=== PATIENT | female | born 1960 | race Caucasian/White ===

== ENCOUNTER 2025-02-24 07:47 | Outpatient (CLI) | payer BC, SELFPAY ==
--- OUTSIDE RECORDS SUMMARY | 2016-03-15 08:30 | XMS_ITS | Continuity of Care Document ---
Author Organization [facility] Address [address] [place] [address] [place] [address] Phone Care Team Providers Care Spool Cleaner Name Role Phone Alcon Powers MD Unavailable Unavailable Medications Medication Instructions Dosage Effective Dates (start - stop) Status Comments omeprazole 40 mg capsule,delayed release take 1 capsule by oral route every day before a meal 40 MG - Active Procedures Procedure Date No Charge Refraction Office/outpatient Visit, [facility] Advance Directives Directive Yes / No Effective Date File Name No Information Encounters Encounter Description Practice Location Reason(s) For Visit Diagnoses Date Provider Providers Copied on Encounter Office/outpat ient Visit, [facility], [address] [place] [address] [address], [place], [place], [id number], [place] tel:[phone] [facility] Professional Cataract evaluation (chief complaint) Nuclear sclerosis of left eyeNuclear sclerosis of right eye [address] [facility] [address], [place], [place], [id number], [place]. tel:[phone] Referring Provider: Josi Gutiérrez OD, [address] [place], [address]. tel:[phone] Family History Family Member Type Diagnosis Age At Onset No Information Payers Payer name Insurance type Covered constitution party ID Authoriza tion(s) BCBS ID Out Of State [id number] Social History Type Description Quantity Date Captured Comments Alcohol Use Details Caffeine Use Details No Tobacco Use Status No Information Smoking Status Never smoker Non-Smoking Tobacco Use Details : No Details Available : No Details Available Sex Female Chief Complaint And Reason For Visit From encounter dated '03/15/2016 14:30'. Cataract evaluation (chief complaint). Description: The 55 year old female presents for Cataract evaluation ou per Dr. Gutiérrez. Patient c/o bluury vision ou and hard to see road signs. Patient c/o hard to read small ou. Patient is a contact lens wearer and wears monovision contacts. Patient states has not worn contacts x 1 month. Reason For Referral Reason For Referral No Information History Of Present Illness Encounter Date Complaint History Of Prese nt Illness Cataract evaluation The 55 year old female presents for Cataract evaluation ou per Dr. Gutiérrez. Patient c/o bluury vision ou and hard to see road signs. Patient c/o hard to read small ou. Patient is a contact lens wearer and wears monovision contacts. Patient states has not worn contacts x 1 month. Functional Status Date Functional Assessmen t No Information Instructions Date Instruction Additional Infor mation Impression/Plan - Ea rly Cataracts discussed in detail with patient. Patient has 20/20 vision with current glasses and minimal glare on BAT testing. No treatment is recommended at this time. The glare that the patient has been experiencing may be exacerbated by her MF CTLs. Patient to return to Dr. Gutiérrez for refraction and new glasses. Patient will monitor vision and return to clinic in 1 year for Complete Cataract check or sooner PRN. Follow up - 1 year for Complete Cataract Check Assessments Type Assessment Date assessment Nuclear sclerosis of left eye No v assessment Nuclear sclerosis of right eye N Patient Care Teams Name Effective Dates (start - stop) Status Members No Information
--- OUTSIDE RECORDS SUMMARY | 2025-02-24 07:56 | XMS_ITS | Encounter Summary ---
Author Organization [facility] Address [address] [place] [address] Phone Care Team Providers Care Pattern Mechanic Name Role Phone Alonso Randhawa MD Primary Care Provider + [phone] Adrienne Atkinson MD Unavailable [phone] Encounter Details Date Type Department Care Team (Late st Contact Info) Description 03/22/2017 Orders Only [facility] [address] [place] [address] China Burns MA Social History Tobacco Use Types Packs/Day Years Used Date Smoking Tobacco: Former Comments:Smoking History Pac ks/day: 1 Packs Alcohol Use Standard Drinks/Week Comments Yes 0 (1 standard drink = 0.6 oz pur e alcohol) Comments No Sex and Gender Information Value Date Recorded Sex Assigned at Not on file 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 Gender Identity Not on file Sexual Orientation Not on file documented as of this encounter Plan of Treatment Upcoming Encounters Date Type Department Care Team (Late st Contact Info) Description 08/03/2025 11:30 AM CDT Hospital Encounter [facility] [address] [place] [address] Dio Dalton MD [address] [place] [address] [place] [address] 08/03/2025 11:30 AM CDT - 08/03/2025 12:00 PM CDT Surgery [facility] [address] [place] [address] Dio Dalton MD [address] [place] [address] COLONOSCOPY Scheduled Procedures Name Priority Associated Diagnoses Date/Ti me COLONOSCOPY History of colonic polyps Family history of colon cancer Encounter for screening colonoscopy 08/03/2025 11:30 AM CDT documented as of this encounter Visit Diagnoses Not on filedocumented in this encounter Additional Health Concerns Infection Onset Date Last Indicated Resolved Time COVID: Suspected 01/01/2020 01/01/2020 01/02/2020 11:45 AM CDT Respiratory Infection (FAINA), contact + droplet Comment:Automatically added due to negative COVID-19 result. 01/02/2020 01/02/2020 01/16/2020 3:0 6 AM CDT COVID: Suspected 05/18/2022 05/18/2022 05/18/2022 11:50 AM ASSISTANT SUPERINTENDENT COVID: Suspected 07/05/2022 07/05/2022 07/05/2022 12:23 PM CDT COVID: Suspected 07/05/2022 07/05/2022 07/05/2022 1:13 PM CDT COVID: Suspected 07/25/2022 07/25/2022 07/25/2022 1:21 PM CDT COVID: Suspected 03/30/2023 03/30/2023 03/30/2023 8:45 AM ASSISTANT SUPERINTENDENT COVID: Suspected 05/28/2024 05/28/2024 05/28/2024 3:43 PM ASSISTANT SUPERINTENDENT COVID19 05/28/2024 05/28/2024 06/07/2024 3:07 AM ASSISTANT SUPERINTENDENT COVID: Recovered Comment:Added based on recent COVID infection. 06/07/2024 06/27/2024 09/05/2024 3:05 AM C DT documented as of this encounter Care Teams Pattern Mechanic Relationship Specialty Start Date End Date Alonso Randhawa MD PCP - General 07/21/16 Adrienne Atkinson MD [address] [place] [address] Obstetrics and Gynecology 11/29/16 documented as of this encounter
--- OUTSIDE RECORDS SUMMARY | 2025-02-24 07:56 | XMS_ITS | Clinical Summary ---
Author Organization [facility] Address [address], [address] [place] [address] Phone Care Team Providers Care Court Specialist Name Role Phone Alonso Randhawa MD Primary Care Provider Allergies No known active allergies Medications acetaminophen-c odeine (TYLENOL #3) 300-30 MG Tablet 0 10/10/2017 Active Dexlansoprazole (DEXILANT) 60 MG CAPSULE DELAYED RELEASE TAKE 1 CAPSULE DAILY (REPLACES OMEPRAZOLE) 02/06/2017 Active DULoxetine (CYMBALTA) [address] Particles Take 60 mg by mouth 2 times daily. 07/18/2017 Active MULTIPLE VITAMIN PO Take 1 Tab by mouth daily. Active pregabalin (LYRICA) 100 MG Capsule Take 100 mg by mouth 3 times daily. Active pantoprazole (PROTONIX) 40 MG Tablet Delayed Response Take 40 mg by mouth daily. Active rosuvastatin (CRESTOR) 20 MG Tablet Take 20 mg by mouth daily. Active Immunizations Immunization Administration Dates Next Due Covid-19, Mrna, Lnp-s, Pf, 1 00 Mcg Or 50 Mcg Dose (MODERNA) 08/11/2020,07/05/2020 Family History Medical History Relation Name Comments Cancer Maternal Grandmother colon Cancer Mother lung Relation Name Status Comments Father Maternal Grandmother Mother Social History Tobacco Use Types Packs/Day Years Used Date Smoking Tobacco: Former Cigarettes 1 20 0 10/17/1977 - 10/17/1997 Smokeless Tobacco: Never Alcohol Use Standard Drinks/Week Comments No 0 (1 standard drink = 0.6 oz pur e alcohol) socially Comments Unknown Sex and Gender Information Value Date Recorded Sex Assigned at Not on file Legal Sex Female 11:37 PM CDT Gender Identity Not on file Sexual Orientation Not on file Last Filed Vital Signs Vital Sign Reading Time Taken Comments Blood Pressure 132/73 10/08/2024 12:10 PM CDT Pulse 66 10/08/2024 12:10 PM CDT Temperature 36.2 C (97.1 F) 10/08/2024 12:10 PM CDT Respiratory Rate 16 10/08/2024 12:10 PM CDT Oxygen Saturation 97% 10/08/2024 12:10 PM CDT Inhaled Oxygen Concentration - - Weight 78.9 kg (174 lb) 10/08/2024 7:00 AM CDT Height 157.5 cm (5' 2) 10/08/2024 7:00 AM CDT Body Mass Index 31.83 10/08/2024 7:00 AM CDT Plan of Treatment Health Maintenance Due Date Last Done Comments DEXA Bone Density 1960 Hepatitis C Virus (HCV) Screening 1960 Pap Smear 07/31/1980 Cervical Cancer Screening (CCS) 07/31/1989 HPV/Cotest 07/31/1989 Cologuard 07/31/2004 Immunochemical Fecal Occult Blood 07/31/2004 Pneumococcal Immunization (50+ years) (1 of 1 - PCV) 07/31/2009 Colonoscopy 11/26/2022 11/26/2017 Colorectal Cancer Screening 11/26/2022 Hepatitis B Immunization (2 of 2 - CpG 2-dose series) 03/27/2023 02/27/2023 Influenza Immunization (#1) 12/22/202401/21, 02/27/2023, 01/02/2022, Additional history exists SARS-COV-2 Immunization ( season) 2024 02/05/2024, 01/30/2023, 03/19/2022, Additional history exists Mammogram 05/20/2025 05/20/2024, 12/23, 05/18/2021, Additional history exists DTaP/Tdap/Td Immunization Discontinued 10/29/2017 TdaP Immunization Completed 10/29/2017 Zoster Immunization Completed 05/08/2019, 9 Respiratory Syncytial Virus (RSV) Immunization (Adult) Completed 01/30/2023 Human Papillomavirus (HPV) Immunization Aged Out No longer eligible based on patient's age to complete this topic Meningococcal Immunization (ACWY) Aged Out No longer eligible based on patient's age to complete this topic Rotavirus Immunization Aged Out No lo nger eligible based on patient's age to complete this topic Insurance [place] [id number] [facility] MEDICARE Care Teams Court Specialist Relationship Specialty Start Date End Date Alonso Randhawa MD [address] [place] [id number] PCP - General Internal Medicine 09/25/17
--- OUTSIDE RECORDS SUMMARY | 2025-02-24 07:56 | XMS_ITS | Encounter Summary ---
Author Organization [facility] Address [address] [place] [address] Care Team Providers Care Student Recruiter Name Role Phone Alonso Randhawa MD Primary Care Provider + [phone] Adrienne Atkinson MD Unavailable [phone] Encounter Details Date Type Department Care Team (Late st Contact Info) Description 02/09/2025 Results Follow-Up [facility] [address] [place] [address] Adrienne Atkinson MD [address] [place] [address] Pap and High Risk HPV and Genotyping (Cytology Component) Social History Tobacco Use Types Packs/Day Years Used Date Smoking Tobacco: Former Smokeless Tobacco: Never Comments:Smoking History Pac ks/day: 1 Packs Alcohol Use Standard Drinks/Week Comments Yes 0 (1 standard drink = 0.6 oz pur e alcohol) PHQ-2 Answer Date Recorded PHQ-2 Total Score (If total score is 3 or more points, staff should administer the PHQ-9) 0 01/29/2025 Personal Safety Answer Date Recorded Getting School Help Needed Denies 04/24 Comments No Sex and Gender Information Value Date Recorded Sex Assigned at Not on file 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 Gender Identity Not on file Sexual Orientation Not on file Occupation Industry Job Start Date Job End Date disabled Not on file Not on file Not on file documented as of this encounter Plan of Treatment Upcoming Encounters Date Type Department Care Team (Late st Contact Info) Description 08/03/2025 11:30 AM CDT Hospital Encounter [address] [address] Dio Dalton MD [address] [facility] [place] [address] 08/03/2025 11:30 AM CDT - 08/03/2025 12:00 PM CDT Surgery [address] [address] Dio Dalton MD [address] [facility] [place] [address] COLONOSCOPY Scheduled Procedures Name Priority Associated Diagnoses Date/Ti me COLONOSCOPY History of colonic polyps Family history of colon cancer Encounter for screening colonoscopy 08/03/2025 11:30 AM CDT documented as of this encounter Visit Diagnoses Not on filedocumented in this encounter Care Teams Student Recruiter Relationship Specialty Start Date End Date Alonso Randhawa MD PCP - General 07/21/16 Adrienne Atkinson MD [address] [place] [address] Obstetrics and Gynecology 11/29/16 documented as of this encounter
--- OUTSIDE RECORDS SUMMARY | 2025-02-24 07:56 | XMS_ITS | Clinical Summary ---
Author Organization [facility] [address] Address [address] [place] [address] Phone Care Team Providers Care Risk Management Internship Name Role Phone Chuy Randhawa MD Primary Care Provider +- [phone] Alejandra Phelps MD Unavailable [phone] Allergies Active Allergy Reactions Criticality Noted Date Comments Atorvastatin Unknown Low Medications pregabalin (LYRICA) 100 mg capsule Take 1 capsule (100 mg total) by mouth 3 (three) times a day Active mv,with [id number] 9herb 13.5-200-250 mg-mcg-mcg tablet Take 1 tablet by mouth daily Active promethazine-DM (PROMETHAZINE-DM) 1.25-3 mg/mL syrupIndications: Upper respiratory tract infection, unspecified type Take 5 mL by mouth every 4 (four) hours as needed for cough 120 mL 025 Active Additional Information Patient not taking.Reported on 02/19/2025 albuterol HFA (PROVENTIL HFA,VENTOLIN HFA,PROAIR HFA) 90 mcg/actuation inhalerIndication s:Wheezing Inhale 2 puffs every 6 (six) hours as needed for wheezing 1 each 4 025 2025 Active rosuvastatin (CRESTOR) 20 mg tabletIndications :Mixed hyperlipidemia TAKE 1 TABLET DAILY 90 tablet [address] (CYMBALTA) 60 mg capsuleIndication s:Current mild episode of major depressive disorder, unspecified whether recurrent TAKE 1 CAPSULE TWICE A DAY [address] (PROTONIX) 40 mg EC tabletIndications :Gastroesophageal reflux disease without esophagitis Take 1 tablet (40 mg total) by mouth daily 90 tablet 025 Active meloxicam (MOBIC) 15 mg tablet Take 1 tablet (15 mg total) by mouth daily 025 Active oxyBUTYnin XL (DITROPAN-XL) 5 mg 24 hr tabletIndications :Urge incontinence Take 1 tablet (5 mg total) by mouth daily 30 tablet 1 [address] (CYMBALTA) 60 mg capsuleIndication s:Current mild episode of major depressive disorder, unspecified whether recurrent TAKE 1 CAPSULE TWICE A DAY 180 capsule 1 [address] (PROTONIX) 40 mg EC tabletIndications :Gastroesophageal reflux disease without esophagitis TAKE 1 TABLET DAILY 90 tablet 025 2024 Discontinued(R eorder) Active Problems Problem Noted Date Diagnosed Date Left lower quadrant abdominal pain 02/19/2025 Assessment & Plan (02/19/2025 7:18 PM CDT): Patient's abdominal pain lower abdomen left side was constantly been there for several days. No urinary symptoms. Exam patient abdomen appears slightly bloated KUB shows evidence of moderate amount of fecal material consistent with constipation. Patient will be advised to utilize MiraLax. Be indicated at this time History of colonic polyps 02/13/2025 Family history of colon cancer 02/13/2025 Encounter for screening colonoscopy 02/13/2025 Wheezing 07/06/2024 Spinal stenosis of lumbar re gion without neurogenic claudication 05/19/2024 Assessment & Plan (05/19/2024 5:37 PM YEAST DISTILLER): Notes reviewed interventional pain clinic. MRI results reviewed from past week showing lumbar spinal stenosis. She has been advised by pain clinic to contact neurosurgery [place]. Patient has had spinal stenosis and cervical disc surgery in the past 5 years. Patient is reminded no having lifting where she recently did. Changes in medications she has been on multiple medications through pain clinic with partial relief. Ulnar neuropathy of right upper extremity 2023 Assessment & Plan (11/15/2023 3:01 PM CDT): Patient has had some neuropathy symptoms right upper arm this started since her last visit to a pain clinic.. The patient discuss this with the pain Clinic on the upcoming visit Balance problem 11/15/2023 Assessment & Plan (11/15/2023 3:41 PM CDT): Patient states she feels off balance sometimes she when she walks a few falls never had any syncopal episodes are diaphoresis a palpitations. Patient is of the opinion that it may be a medication she is on pre gabapentin/Lyrica and duloxetine. Advised patient to discuss with pain clinic potential side effects her exam here in office perfectly normal she did a heel-to-toe walk without difficulty neurological exam in terms of balance was excellent Preventative health care 10/18/2022 Assessment & Plan (01/29/2025 3:51 PM CDT): 64-year-old lady here for annual exam. She advised me she is getting lumbar surgery on 03/17/2025. She has had 2 previous back surgeries both no cervix disc in the past 2 years. She presently has a pain pump in place. For lumbar back pain. She history of arthritis degenerative disc disease and spinal stenosis. Assessment & Plan (11/15/2023 3:38 PM CDT): History and physical completed patient's health risk assessment health maintenance reviewed and addressed. Overall patient is doing well. She does have some ongoing pain related to her cervical neuropathy. Having some neuropathy in the right upper extremity at this time. She does have a pain pump in place. Other health problems include hyperlipidemia. She also had some anxiety she is taking care of grandchildren 1 years of age and 4 years of age secondary to her daughter's health issues. Anticipated that her daughter will take over managing the children next 6 months. Restless leg 10/17/2022 Assessment & Plan (11/15/2023 2:59 PM CDT): Patient is presently not taking Requip/ropinirole. Patient did help her she is having some cramps in her hands and feet it may be unrelated.. Advised discussed this with the pain clinic next week on her visit because she is having some other concerns at this time Assessment & Plan (01/19/2023 6:06 PM CDT): Restless leg has improved with the Requip 5 mg in the evening. Assessment & Plan (10/18/2022 10:26 AM CDT): Patient is having restless leg type symptoms however the cramping is predominantly in her feet. Plans start this patient on Requip 0.5 mg at HS she is advised she may need to titrate to twice a day because of problems do occur day and night. Progress report in the next 30 days. Osteoarthritis, hand, primary localized, right 0 10/17/2022 Assessment & Plan (01/19/2023 6:05 PM CDT): Patient having lot of right hip pain physical therapy has helped her in the past coming refer her back to physical therapy she remains on non steroidal anti-inflammatory turns 75 mg daily Cough 05/18/2022 Assessment & Plan (05/21/2023 10:16 AM YEAST DISTILLER): URI symptoms for approx 4-5 weeks. Tested negative for COVID and FLU at beginning of symptoms. Tight cough, significant PND on exam. Finish Doxycycline as rxd. Rxd Prednisone burst for wheezing. Encouraged plain cough suppressant (Delsym). Tylenol/Ibuprofen as needed for pain. Increase fluids (water) Cool mist humidifier at night Use sinus rinses to help flush bacteria and help with congestion. Encouraged honey, marshmallows, gelatin, or chloraseptic to help coat throat. Call with any worsening or persistent symptoms. Assessment & Plan (04/25/2023 3:44 PM YEAST DISTILLER): URI symptoms for approx 10 days. Tested negative for COVID at home. Tight cough, significant PND, maxillary tenderness on exam. Likely viral, Rxd Promethazine Dm as instructed. Discussed antihistamine use (zyrtec/pat) to help dry up mucous. Tylenol/Ibuprofen as needed for pain. Increase fluids (water) Cool mist humidifier at night Use sinus rinses to help flush bacteria and help with congestion. Encouraged honey, marshmallows, gelatin, or chloraseptic to help coat throat. Call with any worsening or persistent symptoms. Assessment & Plan (03/30/2023 9:15 AM YEAST DISTILLER): Persistent cough x 1 month. Sometimes coughs so hard she gags. Cough likely related to viral illness, as entire family has been sick. However, given duration of illness, may have bacterial component as well. Some rhonchi heard in lungs on exam today. Covid/Flu/RSV negative in-office today Plan: RX for doxycycline x 7 days RX for albuterol inhaler RX for promethazine-DM (patient does not have cough relief with tessalon perles Other symptom relief as discussed in AVS Patient to follow-up if no improvement at end of antibiotic course Assessment & Plan (07/25/2022 1:27 PM CDT): Reportedly persistent, intermittent problem since upper respiratory infection around 07/05/2022, reportedly worse over the last 3-4 days Patient denies currently smoking - reports that she smoked a long time ago No documented lung history Physical examination as documented - no signs/symptoms of serious illness noted COVID 19 and influenza A/B in office - ALL negative Suspect likely viral etiology (bronchitis) vs allergic etiology vs combination thereof Recommended continued supportive measures at this time and symptom monitoring - patient agreeable to plan Discussed patient calling back in 2 weeks if no improvement with supportive measures as documented below to get CXR to assess structural abnormality contributing to cough - patient verbalized understanding and agreement Orders for AMS STAFF to arrange None at this time Orders for Cesar Gilliland to arrange Start benzonatate as needed for cough Continue albuterol inhaler as needed for cough/wheezing/shortness of breath Consider restarting Flonase - can use twice daily during acute symptoms Consider adding Mucinex DM to regimen to thin respiratory secretions and suppress cough in addition to Tessalon Pearles Consider adding allergy medication to regimen - cetirizine, loratadine, fexofenadine - can take twice daily during acute symptoms Continue monitoring symptoms - report persistent or worsening symptoms to the office or go to ER Call office in a couple weeks if no improvement in symptoms with above conservative measures - will consider getting CXR to rule out structural abnormality contributing to cough Follow up as scheduled with Dr. Randhawa or sooner if necessary Assessment & Plan (07/05/2022 1:24 PM CDT): Acute problem, present times about 1.5 weeks Physical examination as documented - no signs/symptoms of serious illness noted COVID 19 and influenza A/B in office - ALL negative Suspect likely viral vs bacterial infectious etiology Recommended antibiotics and continued symptom management/monitoring - patient requested something other than azithromycin, stating that she normally has to take 2 courses of this antibiotic when prescribed this - patient agreeable to doxycycline and supportive measures (see below) Orders for AMS STAFF to arrange None at this time Orders for Cesar Gilliland to arrange Start doxycycline as ordered - complete course, take on an empty stomach preferably - if cannot tolerate on empty stomach, take with food (AVOID calcium containing foods) Continue Mucinex to keep respiratory secretions thin Consider adding allergy medication to regimen - cetirizine, fexofenadine, loratadine - can take twice daily for up to 2 weeks during acute symptoms Consider adding intranasal steroid - Flonase or Nasacort - can use twice daily for up to 2 weeks during acute symptoms Consider using warm compresses over the sinuses multiple times daily as able to help with sinus pressure and headache Consider OTC acetaminophen for discomfort Stay hydrated, rest as needed, eat well Continue monitoring symptoms - report persistent or worsening symptoms to the office or go to ER Follow up as scheduled with Dr. Randhawa or sooner if necessary Assessment & Plan (05/18/2022 12:58 PM YEAST DISTILLER): Acute problem, present times about 1.5 weeks Physical examination as documented - no signs/symptoms of serious illness noted COVID 19 and influenza A/B in office - ALL negative Suspect likely viral vs atypical bacterial etiology Recommended azithromycin to cover atypical bacteria and continue symptom management/monitoring - patient agreeable to plan Orders for AMS STAFF to arrange None at this time Orders for Cesar Gilliland to arrange Start azithromycin as ordered - complete course, take with food and probiotic to prevent stomach upset and diarrhea Start benzonatate as needed for cough Continue OTC medications for symptom relief Stay hydrated, eat well, rest as needed Continue monitoring symptoms - report persistent or worsening symptoms the office or go to ER Follow up as scheduled with Dr. Randhawa or sooner if necessary Mixed hyperlipidemia 03/20/2022 Assessment & Plan (05/21/2024 6:59 PM YEAST DISTILLER): Lipid profile continues to be in therapeutic range on rosuvastatin 20 mg daily will continue present therapy Component Latest Ref Rng 11/15/2023 Cholesterol 30 - 199 mg/dL 134 Triglycerides <=149 mg/dL 74 HDL Cholesterol >=40 mg/dL 49 LDL Cholesterol Calc <=129 mg/dL 70 Non-HDL Cholesterol mg/dL 85 Chol/HDL ratio 3 Assessment & Plan (11/15/2023 3:10 PM CDT): Patient remain on Crestor we will get an update on fasting lipid profile. She is tolerating medications and she is overdue for lab Assessment & Plan (03/20/2022 5:20 PM YEAST DISTILLER): Update lipid profile today patient is on Zetia 10 mg daily Acute bilateral low back pain without sciatica 0 11/24/2021 Assessment & Plan (12/14/2023 3:14 PM CDT): This patient at age 63 on wisely decided to move some logs in her yd and developed acute low back pain. This was 3 weeks ago she anticipated she would have improved by now which she has not. Patient is uncomfortable going from sitting to standing sitting on exam table. She has good flexion of her hips pain is from L1-L4 pain is worse with palpating. Patient has no neurological deficits. She has some stiffness in her back. And she is on Lyrica therefore no muscle relaxant given. Patient is going to try prednisone 20 mg twice a day. Assessment & Plan (01/19/2023 6:05 PM CDT): Pain is improved however she does have some right hip pain physical therapy will be involved referral made Assessment & Plan (10/18/2022 10:30 AM CDT): Patient is having a flare-up of low back pain she previously went to [facility] which helped her. Has no sciatica at this time I recommended she resume physical therapy. Assessment & Plan (11/24/2021 5:07 PM CDT): Patient's has known osteoarthritis she is complaining a lot of hip pain and low back pain. Is no significant sciatic at this time he is on non steroidal anti-inflammatorys. Recommend she get a physical therapy mild osteoarthritis for left hip Sleep disturbance 07/09/2018 Assessment & Plan (07/09/2018 5:48 PM CDT): Patient is here to discuss sleep disturbance she has impression for from her she has sleep apnea.. Patient does not have sleep apnea her [place] Sleepiness Scale is 7 abnormal greater than 10. Patient does have disturbing dreams 80% of the time she does not wake up fighting asleep for crying hauling and sleep. Just horrible drains this is been going on for years. Patient describes it may be getting 5 hours of sleep difficulty of falling sleep very active mine is running in racing all the time she does not take naps during the day and she wakes up rested.. 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 Patient needs an update on BMP and fasting lipid profile. Immunizations current. Patient has chronic pain she has had several neck surgeries giving her neuropathy symptoms she has a pain pump in place and she is under care of the pain Clinic. Assessment & Plan (03/20/2022 5:23 PM YEAST DISTILLER): Forms filled out from [facility] for foster grandparent care. Presently has a 5-year-old living with her.. No restrictions on this patient serving as a foster grandparent appropriate forms were filled out given to the patient sent into the [facility].. Assessment & Plan (05/16/2021 12:02 PM YEAST DISTILLER): History and physical completed patient's health risk assessment health maintenance reviewed in addressed.. Mammogram is ordered. Patient has not had a lipid profile for several years will check this at this time patient's body mass index is 30.95 Assessment & Plan (02/23/2021 10:36 AM CDT): Patient is here for surgical clearance she is getting a stimulator placement for cervical neck pain. This will be done at [facility] Dr. Tristen Reid.. Patient is low risk surgical complications she is clear for surgery. Preoperative EKG and lab will be done at the facility of surgery. Assessment & Plan (10/29/2017 5:18 PM CDT): Patient's annual exam is unremarkable, patient has a colonoscopy coming up in a few weeks she received letter from her gastroenterology advised her she needs to repeat colonoscopy based on previous colonoscopy report some biopsies. This is scheduled for November 26, 2017 patient's laboratory studies updated and immunization a tetanus is given. Hepatitis C laboratory screenin. and mammograms ordered. Chronic neck pain 10/29/2017 Assessment & Plan (11/15/2023 3:12 PM CDT): Patient continues under the pain Clinic /interventional pain audit consultant clinic. Assessment & Plan (05/17/2021 10:53 AM YEAST DISTILLER): Patient has had a stimulator placed in a pain clinic.. Adjustments still being pain on the stimulate for optimal pain relief. Assessment & Plan (03/15/2020 6:05 PM YEAST DISTILLER): Patient is status post cervical pain she continues to have neck pain and upper back pain Dr. Kalia Lombardi patient's orthopedic surgeon now has a physical therapy. Patient has been on meloxicam approximate 2 years is a possibility is losses effectiveness I will change her to diclofenac 75 mg twice a day. Assessment & Plan (10/29/2017 5:27 PM CDT): Patient advises me she has follow by Dr.Rebecca Shell . [place] Obesity with body mass index 30 or greater 06/29 Overview (07/28/2016): BMI 30+ - obesity Former smoker 11/02/2014 Overview (07/28/2016): Ex-smoker Anxiety 08/06/2012 Overview (07/28/2016): Anxiety Assessment & Plan (01/19/2023 6:06 PM CDT): Patient advised me she will be adopting her granddaughter. Patient's daughter has some problems with employment and mental health issues Assessment & Plan (10/18/2022 10:30 AM CDT): Patient this time feel on lot of stress she is having to take care of her granddaughter she has temporary custody a granddaughter secondary to orders mental health issues Assessment & Plan (03/20/2022 5:23 PM YEAST DISTILLER): Patient is having some anxiety her daughter was having problems with alcohol the daughter is seeking counseling through a local mental health facility. Patient's is obviously involving giving her best advice she will remain on the medications Cymbalta which is for neuropathy depression and anxiety Depression 05/20/2012 Overview (07/27/2016): Depression Assessment & Plan (01/19/2023 6:08 PM CDT): Patient continues on duloxetine 60 mg daily b.i.d. with her chronic pain and depression Assessment & Plan (11/14/2021 5:37 PM CDT): Patient's mood remains very good no change in therapy Assessment & Plan (05/16/2021 12:02 PM YEAST DISTILLER): Depression well controlled PHQ-9 score 3 Assessment & Plan (05/01/2019 2:34 PM YEAST DISTILLER): Patient duloxetine 60 mg daily is working well now is not is working is effective as desired increase duloxetine to 60 mg twice a day patient's PHQ 9 score is 19 this is a [id number]-[id number] score Assessment & Plan (10/29/2017 5:16 PM CDT): Patient taking duloxetine 60 mg per day tolerating medications she is improved with use the medication PHQ-9 score is 7 which is consistent with mild depression continue present medications. Assessment & Plan (09/04/2017 6:20 PM CDT): . Patient taking Cymbalta 60 mg per day and tolerating her PHQ-9 score is 10. No change in therapy Resolved Problems Problem Noted Date Diagnosed Date Resolved Date Upper respiratory tract infection 03/30/2023 01/29/2025 Left hip pain 11/24/2021 03/20/2022 Assessment & Plan (11/24/2021 5:08 PM CDT): Patient complains of left hip pain specially going from sitting to standing. Good range of motion of her hips her and a normal gait. Pain reproducible on palpating no sciatica. Recommend physical therapy Dysphagia 08/17/2021 11/14/2021 Overview (08/17/2021): Added automatically from request for surgery [id number] Chest pain in adult 03/15/2020 02/24/20 Assessment & Plan (03/15/2020 6:06 PM YEAST DISTILLER): Patient's chest pain in the middle of her chest approximately 2nd through 4th rib last 10 minutes at a time makes a difference on activity. She has had this scans of pains in the past she has thinks is stress related. EKG was performed was compared to previous EKGs May 2019 in December 2017 and was no significant change does show evidence of possible old myocardia infarction. Nonspecific ST changes. Patient no distress and no medications and instituted. Attention deficit disorder (ADD) in adult 07/09/2018 05/16/2021 Assessment & Plan (07/09/2018 5:50 PM CDT): Patient describes great difficulty in staying focused. She describes always losing things spending a lot times walking around her house in circles looking for things she just put somewhere few minutes early. She also describes her mind not ever resting is always thinking finger are translating different problem.. Feels worn out from the walking throughout the house looking for things as well as the mental mental drain of always for focusing on problems at a not necessarily real. Patient's sleep is disturbed by this and she has difficulty falling sleep. My opinion is lady needs see Psychiatry for evaluation for attention deficit disorder Gastroesophageal reflux dise ase with esophagitis 07/09/2018 03/20/2022 Assessment & Plan (11/14/2021 5:36 PM CDT): GERD continues to be active problem. Advised to stop the diclofenac/Voltaren by mouth. This could be aggravating the problem patient's joint pains are much better neck pain is better back pain is better. Assessment & Plan (08/02/2021 5:40 PM CDT): Dexilant is working very well for this patient's problems she was advised insurance will not cover this drug. However I do not have any rejections in our files from the insurance company. She was given Nexium along with Pepcid did not work. She is now taking Protonix and seems a be working satisfactory at 5 days into therapy.. Advised patient give me a progress report in a week with respect to the response.. He has no blood in the stools she is not vomiting blood she has GERD symptoms that are again improving. Assessment & Plan (07/09/2018 5:51 PM CDT): Patient's symptoms of GERD have return she will resume Dexilant knows not working advised to double dose for the next several days. 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 Boil of buttock 03/30/2018 05/01/2019 Assessment & Plan (03/30/2018 2:29 PM YEAST DISTILLER): For long buttocks for approximately is 2-3 days she has had this in the past. She has a low bit of scarring where previous boil was several months ago. Approximately 2.5 cm in diameter his fluctuant not very to not pustular plans at this time Bactrim DS 2 tablets twice a day x5 days. Advised patient to use Hibiclens soap in area having around any evidence recurrence boils. Rx was sent in for this as well. Preoperative clearance 01/19/201805/16 Assessment & Plan (05/01/2019 12:32 PM YEAST DISTILLER): Patient is here for surgical clearance she is going to get her 2nd surgery on his cervical spine patient has no contraindications surgery she had a previous procedure without any complications.. Patient's blood pressure is well controlled.. No symptoms referable to hypertension she has no coronary artery symptoms no significant GI problems patient is under care for depression which are medication adjustments have been made. I see no contraindications patient undergoing surgery. Assessment & Plan (01/19/2018 7:04 PM CDT): 49-year-old lady who knees surgical clearance for upcoming cervical spine surgery. Forms are filled out is no contraindication aware for her to have the surgery. Chest x-ray in lab to be done at a hospital. Patient's history is depression very well controlled on Dexilant 60 mg daily. No restrictions on upcoming surgery Allergic conjunctivitis of both eyes 11/20/2017 05/01/2019 Assessment & Plan (11/20/2017 5:26 PM CDT): Patient is here because his children concerned regarding the appearance of her eyes. Patient has pruritus for several weeks to months h has she is seen the hospice home health aide in the next 8 days. At this time with respect to as no treatment is indicated this will pass she is not very symptomatic . Contact with and (suspected) exposure to other viral communicable diseases 10/29/20172021 Assessment & Plan (10/29/2017 4:51 PM CDT): Hepatitis C antibody will be ordered as recommended by CDC. Exposure to hepatitis C 10/29/201704/24 Pruritus 10/29/2017 02/23/2021 Assessment & Plan (10/29/2017 5:20 PM CDT): Patient is spirits is pruritus episodically usually in the summer. Topical cream 7 help she was given samples of Xyzal 1 tablet daily purpose of improving pruritus. Allergic rhinitis due to pollen 09/04/2017 10/29/2017 Assessment & Plan (09/04/2017 6:16 PM CDT): Patient is spirits in rhinitis itchy eyes runny nose conjunctivitis sneezing some mild headaches . Symptoms present times 10 days not responded [id number] medications. Patient responded Medrol Dosepak in the past with season allergies this works for several months.. Acute bronchitis 05/01/2017 05/01/2019 Assessment & Plan (05/01/2017 5:52 PM YEAST DISTILLER): Acute bronchitis for the last 7-10 days. Head congestion remains cough is becoming less. No fever no chills no night sweats treatment is supportive care Mucinex ,Tylenol ,rest. Patient has no acute distress and is not toxic on exam or appearance. Arm pain, anterior, right 11/02/2014 Overview (07/28/2016): Elbow pain Assessment & Plan (10/17/2020 3:37 PM CDT): Patient's right arm pain she is concerned this is coming from his neck where she has had cervical surgery. Pain is directly related to use on the computer is full range of motion is no deformity no redness no neurovascular compromise is already on non steroidal anti-inflammatorys at this time. For chronic compresses this may help she can adjust a seated to computer these things may help her with the pain.. The testing no change in medications at this point. Palpitations 08/06/2012 05/01/2019 Overview (07/27/2016): Palpitation Encounters Date Type Department Care Team Description 02/20/2025 Telephone [facility] [address] [place] [address] Chuy Randhawa MD 02/19/2025 12:00 PM CDT Lab [facility] [address] [place] [phone] Left lower quadrant abdominal pain 02/19/2025 11:45 AM CDT Ancillary Procedure [facility] [address] [place] [address] Left lower quadrant abdominal pain 02/19/2025 11:30 AM CDT Office Visit [facility] [address] [facility] [address] [place] [address] Chuy Randhawa MD Left lower quadrant abdominal pain (Primary Dx) 02/13/2025 Telephone [facility] [place] [address] [facility] [address] [place] [address] Dio Dalton MD 02/09/2025 Results [facility] [address] [facility] [address] [facility] [address] [place] [address] Alejandra Phelps MD Pap and High Risk HPV and Genotyping (Cytology Component) 02/05/2025 12:00 PM CDT - 02/05/2025 11:59 PM CDT Hospital Encounter [facility] [address] [facility] [address] [place] [address] Routine cervical smear Discharge Disposition: Discharge to home or self care 02/05/2025 10:50 AM CDT Office Visit [facility] [address] [facility] [address] [place] [address] Alejandra Phelps MD Encounter for gynecological examination without abnormal finding (Primary Dx); Encounter for screening mammogram for breast cancer; Urge incontinence; Routine cervical smear 02/02/2025 Telephone [facility] [address] [facility] [address] [place] [address] Alejandra Phelps MD Appointment Reminder Call 01/29/2025 2:15 PM CDT Office Visit [facility] [address] [place] [address] Chuy Randhawa MD Menopause (Primary Dx); Colon cancer screening; Gastroesophageal reflux disease without esophagitis 01/01/2025 Telephone [facility] [address] [place] [address] Alejandra Phelps MD Appointment Reminder Call 12/30/2024 11:00 AM CDT Office Visit [facility] [address] [place] [address] Chuy Randhawa MD Sore throat (Primary Dx) from Last 3 Months Immunizations Immunization Administration Dates Next Due Heplisav-b (Hepatitis B) 02/27/2023 Influenza, Quadrivalent, Patti l Culture-based MDCK, Preservative Free, Antibiotic Free, Intramuscular 02/27/2023,01/28/2020 Influenza, Quadrivalent, Spl it, Preservative Free, Intramuscular 01/02/2022,12/24/2020,02/05/2017 Influenza, Trivalent, High D ose, Split, Preservative Free, Intramuscular 01/29/2025,02/05/2014 Influenza, Trivalent, Preser vative Free, Intramuscular 02/05/2024 Pfizer SARS-CoV-2 Monovalent Vaccination (12+ Yrs) PURPLE 03/30/2021 Pneumococcal Conjugate Pcv20 01/29/2025 RSV Vaccine, Pref, Recombina nt, Subunit, Adjuvanted, PF, IM (Arexvy) 01/30/2023 Tdap 10/29/2017 ZOSTER Recombinant 05/08/2019,03/09/2019 Surgical History Surgery Date Site/Laterality Comments OTHER SURGICAL HISTORY 04/23/2011 - 04/22/2012 Palpitations: Drug therapy OTHER SURGICAL HISTORY Infertility - IVF, ectopic : Ex lap, salpingostomy OTHER SURGICAL HISTORY Ectopic , ovarian cyst: Ex lap, oophorectomy CHOLECYSTECTOMY Cholecystectomy SPINAL FUSION 04/23/2019 - 04/22/2020 C5-7, L2-3 Medical History Medical History Date Comments Hx Other Medical 2011 Palpitations; O utcome: improved Depression Depression Hx Other Medical Infertility - I VF, ectopic ; Comments: RED 06/30/2015 - Hx Other Medical Ectopic pregnan cy, ovarian cyst; Comments: RED 06/30/2015 - Family History Medical History Relation Name Comments Other Father Murdered; Cause of : Murdered Hypertension Maternal Grandfather Hyperte nsion; Colon cancer Maternal Grandmother Cancer, colon; Hypertension Maternal Grandmother Hyperte nsion; Breast cancer Mother Cancer, breast ; Lung cancer Mother Cancer, lung; C ause of : Cancer, lung Relation Name Status Comments Father (Age 35) Maternal Grandfather Maternal Grandmother Mother (Age 65) Social History Tobacco Use Types Packs/Day Years Used Date Smoking Tobacco: Former Smokeless Tobacco: Never Tobacco Cessation:Counseling Given: Not Answered Comments:Smoking History Packs/day: 1 Packs Alcohol Use Standard Drinks/Week Comments [...] on file Legal Sex Female 6:09 PM YEAST DISTILLER Gender Identity Not on file Sexual Orientation Not on file Occupation Industry Job Start Date Job End Date disabled Not on file Not on file Not on file Obstetrics History Para Term AB IAB SAB Ectopic Multiple Livin g Live Births 2 2 Date Outcome GA Total Labor Labor/2nd/3rd Weight Sex Type Anes PTL Miranda A1 A5 Name Clin AB AB Last Filed Vital Signs Vital Sign Reading Time Taken Comments Blood Pressure 120/64 02/19/2025 11:35 AM CDT Pulse 66 02/19/2025 11:35 AM CDT Temperature 36.4 C (97.5 F) 02/19/2025 11:35 AM CDT Respiratory Rate 16 02/19/2025 11:35 AM CDT Oxygen Saturation 98% 02/19/2025 11:35 AM CDT Inhaled Oxygen Concentration - - Weight 79.2 kg (174 lb 9.6 oz) 02/19/2025 11:35 AM CDT Height 157.5 cm (5' 2) 02/19/2025 11:35 AM CDT Body Mass Index 31.93 02/19/2025 11:35 AM CDT Plan of Treatment Upcoming Encounters Date Type Department Care Team (Late st Contact Info) Description 08/03/2025 11:30 AM CDT Hospital Encounter [facility] [address] [place] [address] Dio Dalton MD [address] [place] [address] 08/03/2025 11:30 AM CDT - 08/03/2025 12:00 PM CDT Surgery [facility] [address] [place] [address] Dio Dalton MD [address] [place] [address] COLONOSCOPY Scheduled Procedures Name Priority Associated Diagnoses Date/Ti me COLONOSCOPY History of colonic polyps Family history of colon cancer Encounter for screening colonoscopy 08/03/2025 11:30 AM CDT Health Maintenance Due Date Last Done Comments Osteoporosis Screening-Bone Density Scan 1960 Colon Cancer Screening-Colonoscopy 11/10/2021 11/10/2014, 11/10/2014, 08/28/2012 Covid-19 Vaccine (2024-2 6 season) 2024 02/05/2024, 01/30/2023, 03/19/2022, Additional history exists Breast Cancer Screening-Mammogram 05/20/2025 05/20/2024, 01/16/2023, 05/18/2021, Additional history exists Depression Screening 01/29/2026 01/29/2025, 06/27/2024, 11/15/2023, Additional history exists Fall Risk Assessment 01/29/2026 01/29/2025, 08/30/2021, 10/29/2017 Well Visit 65+ 02/05/2026 02/05/2025, 1012/2024, 01/04/2024, Additional history exists DTaP/Tdap/Td Vaccine (2 - Td or Tdap) 10/30/2027 10/29/2017 Cervical Cancer Screening 02/05/20302024, 02/05/2025, 01/08/2020, Additional history exists Colon Cancer Screening-CT Colonography Discontinued 11/10/2014, 11/10/2014, 08/28/2012 Colon Cancer Screening-DNA Stool Discontinued 11/10/2014, 11/10/2014, 08/28/2012 Colon Cancer Screening-FIT Discontinued 11/10, 11/10/2014, 08/28/2012 Colon Cancer Screening-Sigmoidoscopy Discontinued 11/10/2014, 11/10/2014, 08/28/2012 Hepatitis C Screening Completed 10/29/2017 Zoster Vaccine Completed 05/08/2019, 03/09/2019 Hepatitis B Screening Completed 02/27/2023 Influenza Vaccine Completed 01/29/2025, , 02/27/2023, Additional history exists Pneumococcal vaccine 65+ Completed 01/29/2025 Procedures Procedure Name Priority Date/Time Associated Diagnosis Comments XR KUB Schedule Routine, Read Routine (OP Routine) 02/19/2025 11:53 AM CDT Left lower quadrant abdominal pain DIFFERENTIAL AUTO Routine 02/19/2025 11: 47 AM CDT Left lower quadrant abdominal pain CBC WITH AUTO DIFFERENTIAL Routine 02/19/2025 11:47 AM CDT Left lower quadrant abdominal pain HIGH RISK HPV DNA DETECTION WITH GENOTYPING Routine 02/05/2025 12:00 PM CDT Routine cervical smear PAP AND HIGH RISK HPV, REFLEX TO GENOTYPING Routine 02/05/2025 10:12 AM CDT Routine cervical smear POCT RAPID STREP Routine 12/30/2024 11:0 0 AM CDT Sore throat SCREENING MAMMOGRAM BILATERAL W DEXTER Schedule Routine, Read Routine (OP Routine) 05/20/2024 10:52 AM YEAST DISTILLER Encounter for screening mammogram for malignant neoplasm of breast HEPATITIS C ANTIBODY Routine 10/29/2017 4:58 PM CDT COLONOSCOPY IMAGES 11/10/2014 from Last 3 Months or Most Recently Relevant to Health Maintenance Results * XR Kub (02/19/2025 11:53 AM CDT) Anatomical Region Laterality Modality Body, Abdomen N/A Computed Radiogr aphy 02/19/2025 12:0 2 PM CDT Impressions 02/19/2025 12:02 PM CDT 1. No definite evidence of a bowel obstruction. 2. Mild to moderate amount of retained fecal debris in the colon, which may related to constipation. Electronically signed by: Elizabeth Mesa D.O. Narrative 02/19/2025 12:02 PM CDT STUDY DESCRIPTION: XR KUB ORDERING HEALTHCARE PROVIDER: CHUY RANDHAWA CLINICAL INDICATIONS: abdominal pain. Left lower abdominal pain for 2 weeks. COMPARISON: Frontal radiographs of the chest, TECHNIQUE: Frontal radiographs of the abdomen and pelvis. FINDINGS: There is no definite evidence of a bowel obstruction. There is a mild to moderate amount of retained fecal debris in the colon, which is most significant proximally. Postsurgical clips are noted in the right upper quadrant the abdomen. There are multiple phleboliths overlying the pelvis. There is a stimulator device noted overlying the left upper quadrant the abdomen. There is a mild levoscoliotic curvature the spine with degenerative changes. There are degenerative changes of bilateral sacroiliac joints and bilateral hips. Procedure Note Elizabeth Mesa, - 02/19/2025 STUDY DESCRIPTION: XR KUB ORDERING HEALTHCARE PROVIDER: CHUY RANDHAWA CLINICAL INDICATIONS: abdominal pain. Left lower abdominal pain for 2 weeks. COMPARISON: Frontal radiographs of the chest, TECHNIQUE: Frontal radiographs of the abdomen and pelvis. FINDINGS: There is no definite evidence of a bowel obstruction. There is a mild to moderate amount of retained fecal debris in the colon, which is most significant proximally. Postsurgical clips are noted in the right upper quadrant the abdomen. There are multiple phleboliths overlying the pelvis. There is a stimulator device noted overlying the left upper quadrant the abdomen. There is a mild levoscoliotic curvature the spine with degenerative changes. There are degenerative changes of bilateral sacroiliac joints and bilateral hips. IMPRESSION: 1. No definite evidence of a bowel obstruction. 2. Mild to moderate amount of retained fecal debris in the colon, which may related to constipation. Electronically signed by: Elizabeth Mesa D.O. us Chuy Randhawa MD IMG XR PROCEDURES Final Re sult * Differential, auto (02/19/2025 11:47 AM CDT) Neutrophil abs 3.33 1.50 - 6.50 K/cumm Comment:Testing performed by : [address] [address] Imm gran abs 0.02 0.00 - 0.10 K/cumm [facility] CH Comment:Testing performed by : [address], [address] Lymphocyte abs 1.74 0.80 - 3.30 K/cumm [facility] CH Comment:Testing performed by : [address], [address] Monocyte abs 0.62 0.20 - 0.80 K/cumm [facility] CH Comment:Testing performed by : [address], [address] Eosinophil abs 0.20 0.00 - 0.50 K/cumm [facility] CH Comment:Testing performed by : [address], [address] Basophil abs 0.04 0.00 - 0.10 K/cumm [facility] CH Comment:Testing performed by : [address], [address] Neutrophil pct 56.0 % [facility] Comment: Interpretive Data Percent cell count reference ranges are not reported, since discordance with absolute values may lead to misinterpretation of CBC data. Current Interpretive Data was last revised on 2017. Testing performed by: [address], [address] Imm gran pct 0.3 % [facility] Comment: Interpretive Data Percent cell count reference ranges are not reported, since discordance with absolute values may lead to misinterpretation of CBC data. Current Interpretive Data was last revised on 2017. Testing performed by: [address], [address] Lymphocyte pct 29.2 % [facility] Comment: Interpretive Data Percent cell count reference ranges are not reported, since discordance with absolute values may lead to misinterpretation of CBC data. Current Interpretive Data was last revised on 2017. Testing performed by: [address], [address] Monocyte pct 10.4 % [facility] Comment: Interpretive Data Percent cell count reference ranges are not reported, since discordance with absolute values may lead to misinterpretation of CBC data. Current Interpretive Data was last revised on 2017. Testing performed by: [address] [address] Eosinophil pct 3.4 % [facility] Comment: Interpretive Data Percent cell count reference ranges are not reported, since discordance with absolute values may lead to misinterpretation of CBC data. Current Interpretive Data was last revised on 2017. Testing performed by: [address] [address] Basophil pct 0.7 % [facility] Comment: Interpretive Data Percent cell count reference ranges are not reported, since discordance with absolute values may lead to misinterpretation of CBC data. Current Interpretive Data was last revised on 2017. Testing performed by: [address] [address] Blood 02/19/2025 11:4 7 AM CDT 02/19/2025 5:25 PM CDT Chuy Randhawa MD LAB BLOOD ORDERABLES Final Result [facility] [address] Department [place] [address] * (ABNORMAL) CBC with auto differential (02/19/2025 11:47 AM CDT) WBC 5.95 3.80 - 9.90 K/cumm Comment:Testing performed by : [address] [address] Hgb 13.5 11.9 - 15.5 g/dL [facility] QUINTANILLA Comment:Testing performed by : [address] [address] Hct 42.7 35.6 - 45.5 % [facility] Comment:Testing performed by : [address] [address] Plt 317 150 - 400 K/cumm HERNAN QUINTANILLA Comment:Testing performed by : [address], [place]., [address] MPV 10.8 9.1 - 12.3 fL [facility] CH Comment:Testing performed by : [address], [address] RBC 4.40 3.90 - 5.20 M/cumm [facility] CH Comment:Testing performed by : [address], [address] MCV 97.0(H) 81.3 - 96.4 fL [facility] CH Comment:Testing performed by : [address], [address] MCH 30.7 27.1 - 33.3 pg [facility] CH Comment:Testing performed by : [address], [address] MCHC 31.6(L) 32.3 - 35.7 g/dL [facility] CH Comment:Testing performed by : [address], [address] RDW CV 12.8 11.1 - 14.9 % CERNER Comment:Testing performed by : [address], [address] RDW SD 46.1 35.7 - 48.1 fL [facility] CH Comment:Testing performed by : [address], [address] NRBC abs 0.00 0.00 - 0.01 K/cumm CERNER Comment:Testing performed by : [address], [address] Blood 02/19/2025 11:4 7 AM CDT 02/19/2025 5:25 PM CDT us Chuy Randhawa MD LAB BLOOD ORDERABLES Final Result [address] Department [place] [address] * High Risk HPV DNA Detection with Genotyping (Molecular component) (02/05/2025 12:00 PM CDT) Pathologist [facility] HPV HR 16 Not Detected Not Detected [facility] Comment:Testing performed by : [facility], [address] [place]., [address] HPV HR 18 Not Detected Not Detected [facility] QUINTANILLA Comment:Testing performed by : [facility], [address] [place]., [address] HPV HR Non 16/18 Not Detected Not Detected [facility] QUINTANILLA Comment: Interpretive Data Nucleic acid amplification for detection of high-risk Human Papilloma virus (HPV) is performed by the Kiko Karlos 6800 HPV test. This assay specifically detects HPV-16 and HPV-18 genotypes. The following HPV genotypes are detected as high-risk HPV: HPV-31, 33, 35, ,39, 45, 51, 52, 56, 58, 59, 66, and 68. This assay has been approved by the [place] Food and Drug Administration for detection of HPV in cervical specimens collected by a physician using an endocervical brush/spatula or cervical broom and placed in the ThinPrep Pap Test PreservCyt collection containers. The performance characteristics of this test have been verified by the [facility] Molecular Infectious Disease laboratory. Correlate with separately reported cytology results, as applicable. Interpretive data last revised 22 Testing performed by: [facility], [address] [place]., [address] Endocervical 02/05/2025 12:0 0 PM CDT 02/06/2025 11:57 AM CDT Narrative HER[facility]N QUINTANILLA - 02/07/2025 6:48 AM CDT Clinical history and diagnosis->DX Z12.4 Testing type->Screening Last menstrual period (date if known)->N/A Previous negative PAP?->Yes us Alejandra Phelps MD LAB BODY FLUIDS AND S TOOLS ORDERABLES Final Result [facility] [place] [address] Department [place] [address] [facility] * Pap and High Risk HPV and Genotyping (Cytology Component) (02/05/2025 10:12 AM CDT) Thin prep (Pap test) 02/05/2025 10:12 AM CDT 02/05/2025 10:12 AM CDT Narrative PATHOLOGY CH - 02/09/2025 12:36 PM CDT [facility] Department of Pathology [address] [place], [place] [id number] Final Report with Addendum Note to Patients: This report may contain a detailed description of human tissue sent by a health care provider to the laboratory for pathologic evaluation. The content of this report is essential for diagnosis and may provide important critical findings. This information may be unfamiliar to patients to review without a medical professional present. It is advised that the patient review this report in the presence of a health care provider who can answer questions and explain the details. Patient Name: CESAR GILLILAND Address: [address] [place] [id number] Gender: F : 1960 (Age: 64) Service: Location: N : [id number] Hospital #: [id number] Patient Type: [facility] SPECIMEN Taken: 02/05/2025 Received: 02/05/2025 Accessioned:: 02/06/2025 Reported: 02/09/2025 Physician(s): MD Alejandra Zhang MD Diagnosis: SOURCE OF SPECIMEN SCREENING THIN PREP IMAGED PAP w/ HPV: STATEMENT OF ADEQUACY - Specimen satisfactory for interpretation; endocervical/transformation zone component absent or insufficient GENERAL CATEGORIZATION: - Negative for intraepithelial lesion or malignancy SONIYA Burkett(ASCP) Report Electronically Reviewed and Signed Out By SONIYA Burkett(ASCP) 02/09/2025 12:36:29Addenda: HPV Test Interpretation (Normal-Negative for High Risk HPV) HPV HR 16- Not detected HPV HR 18-Not detected HPV HR non 16/18- Not detected Interpretive Data Nucleic acid amplification for detection of high-risk Human Papilloma virus (HPV) is performed by the Kiko Karlos 6800 HPV test. This assay specifically detects HPV- 16 and HPV-18 genotypes. The following HPV genotypes are detected as high-risk HPV: HPV-31, 33, 35, 39, 45, 51, 52, 56, 58, 59, 66, and 68. This assay has been approved by the [place] Food and Drug Administration for detection of HPV in cervical specimens collected by a physician using an endocervical brush/spatula or cervical broom and placed in the ThinPrep Pap Test PreservCyt collection containers. The performance characteristics of this test have been verified by the [facility] Molecular Infectious Disease laboratory. Correlate with reported cytology results, as applicable. Interpretive data last revised 22 SONIYA Burkett(ASCP)Report Electronically Reviewed and Signed Out By SONIYA Burkett(ASCP) 02/09/2025 15:52:56 Specimen(s) Received: A: SCREENING THIN PREP IMAGED PAP w/ HPV Clinical History: Menstrual History: Previous Negative Pap The Pap test is a screening test used to aid in the detection of cervical cancer and its precursors. It should not be the sole means by which malignant and premalignant lesions are diagnosed. Both false negative and false positive results may occur. It also has poor sensitivity for the detection of endometrial lesions and should not be used to evaluate suspected endometrial abnormalities. For these reasons it is most important to obtain Pap tests at regular intervals. The performance characteristics of some immunohistochemical stains, fluorescence in-situ hybridization tests and immunophenotyping by flow cytometry cited in this report (if any) were determined by the Surgical Pathology Department at [facility] as part of an ongoing supplier quality engineer program and in compliance with federally mandated regulations drawn from the Clinical Laboratory Improvement Act of 1988 (CLIA '88). Some of these tests rely on the use of analyte specific reagents and are subject to specific labeling requirements by the [place] Food and Drug Administration. Such diagnostic tests may only be performed in a facility that is certified by the Department of Health and Human Services as a high complexity laboratory under CLIA '88. The FDA has determined that such clearance or approval is not necessary. This test is used for clinical purposes. It should not be regarded as investigational or for research. Nevertheless, federal rules concerning the medical use of analyte specific reagents require that the following disclaimer be attached to the report: This test was developed and its performance characteristics determined by the Surgical Pathology Department [facility]. It has not been cleared or approved by the U. S. Food and Drug Administration. Alejandra Phelps MD LAB [place]OLOGY [place] [address] [place] [address] * POCT rapid strep A (12/30/2024 11:00 AM CDT) Pathologist [facility] Rapid Strep A, POC Negative Negative Swab 12/30/2024 11:0 0 AM CDT Chuy Randhawa MD POINT OF CARE TEST ORDERAB LES Final Result * Screening Mammogram Bilateral W Dexter (05/20/2024 10:52 AM YEAST DISTILLER) Anatomical Region Laterality Modality Breast Bilateral Mammography 05/21/2024 9:59 AM YEAST DISTILLER Impressions 05/21/2024 9:59 AM YEAST DISTILLER There is no mammographic evidence of malignancy. A 1 year screening mammogram is recommended. BI-RADS: 2 - Benign. The patient has been or will be contacted. The patient will be entered into a reminder system with a target due date of 1 year for her next mammogram. Electronically signed by: Ariana Owen M.D. Narrative 05/21/2024 9:59 AM YEAST DISTILLER EXAMINATION: SCREENING MAMMOGRAM BILATERAL W DEXTER ORDERING HEALTHCARE PROVIDER: ALEJANDRA PHELPS HISTORY: Routine screening mammography. COMPARISON: 01/16/2023, 05/18/2021, 01/08/2020 TECHNIQUE: CC and MLO views of the bilateral breasts were obtained with digital technique using breast tomosynthesis with C view. Computer aided detection was utilized. FINDINGS: DENSITY: The breasts are heterogeneously dense, which may obscure small masses. BREASTS: There are benign-appearing calcifications bilaterally. There are no suspicious masses, suspicious calcifications, or other suspicious findings in either breast. There has been no suspicious interval change. Alejandra Phelps MD IMG MAMMO PROCEDURES Final Result * Hepatitis C antibody (10/29/2017 4:58 PM CDT) Pathologist [facility] Hep C Ab NON-REACTI VE NON-REACTI VE [facility] [place] SIGNAL TO CUT-OFF 0.01 <1.00 [facility] [place] 10/29/2017 4:58 PM CDT 10/29/2017 4:58 PM CDT Narrative Resulting Agency Comment Performing Organization Information: Site ID: [id number] Name: [facility] Address: [id number] [address] Director: Chuy Cohen D.O., MPH Chuy Randhawa MD LAB MICROBIOLOGY - GENERAL ORDERABLES Final Result [facility] * COLONOSCOPY IMAGES (11/10/2014) Anatomical Region Laterality Modality Other Narrative 11/10/2014 Ordered by an unspecified provider. Historical Provider GI PROCEDURE ORDERABLES F inal Result from Last 3 Months or Most Recently Relevant to Health [place] [address] [employer] [place] [phone] [facility] [place] [address] [place] [address] [place] [address] Advance Directives For more information, please contact: [phone] * Full Code (Latest Code Status on File) Date Activated Date Inactivated Comments 08/30/2021 8:12 AM 08/30/2021 2:27 PM * Full Code Date Activated Date Inactivated Comments 08/30/2021 8:12 AM 08/30/2021 8:12 AM Care Teams Risk Management Internship Relationship Specialty Start Date End Date Chuy Randhawa MD PCP - General 07/21/16 Alejandra Phelps MD [address] [place] [id number] Obstetrics and Gynecology 11/29/16
--- NOTE | 2025-02-24 08:33 | ECG_ITS ---
Test Date: 2025-02-24 08:40:25 Measurements Intervals [place] Rate: 56 P: 32 MI: 166 QRS: 7 QRSD: 93 T: 31 QT: 386 QTc: 373 Interpretive Statements SINUS BRADYCARDIA ST DEVIATION AND MODERATE T-WAVE ABNORMALITY, CONSIDER ANTERIOR ISCHEMIA [-0.1+ mV T WAVE IN V3/V4] No previous ECG available for comparison Electronically Signed On 02-24-2025 21:20:48 [employer] TECHNICIAN by Preston Gilmore M.D.
[2025-02-24 09:01] LABS: Hematocrit 40.9 % (37.0-47.0); Hemoglobin 13.2 g/dL (12.0-15.0); Mean Corpuscular HGB Conc 32.3 g/dl (32-36); Mean Corpuscular Hemoglobin 30.8 pg (26-34); Mean Corpuscular Volume 95.3 fl (80-100); Platelet Count Result 319 k/mm3 (150-375); Red Blood Count 4.29 M/mm3 (4.2-5.4); White Blood Count 5.0 K/mm3 (4.5-10.0)
[2025-02-24 09:15] LABS: INR 0.9; Prothrombin Time 12.6 Seconds (11.1-14.7)
[2025-02-24 09:16] LABS: Partial Thromboplastin Time 28.5 Seconds (22.3-36.8)
[2025-02-24 09:19] LABS: Anion Gap 6 mmol/L (4-12); Blood Urea Nitrogen 21 mg/dL (7-17); Calcium 9.3 mg/dL (8.4-10.2); Carbon Dioxide 30 mmol/L (22-30); Chloride 102 mmol/L (98-107); Estimated Glomerular Filt Rate > 60; Glucose 92 mg/dL (65-110); Potassium 4.5 mmol/L (3.4-5.0); Sodium 138 mmol/L (137-145)
[2025-02-24 09:28] LABS: Add Urine Microscopic? YES; Appearance Urine Clear (Clear); Glucose Urine UA Negative (Negative); Leukocyte Esterase Ur Trace LEU/UL (Negative); Nitrate Urine Negative (Negative); Non Pathogenic Casts 0-2; Specific Grav Ur 1.021 (1.001-1.035)
== END 2025-02-24 07:48 | disposition home or self-care (01) ==
PROVIDERS: PCP Internal Medicine; Visit Provider Neurological Surgery
DX: Z01.818 Encounter for other preprocedural examination (principal); R94.31 Abnormal electrocardiogram [ECG] [EKG]; M48.062 Spinal stenosis, lumbar region with neurogenic claudication; E78.5 Hyperlipidemia, unspecified
CPT/HCPCS: 36415; 80048; 81001; 85027; 85610; 85730; 93005